=== PATIENT | male | born 2000 | race Caucasian/White ===

== ENCOUNTER 2023-11-06 11:36 | Emergency (ER) | payer OTHER ==
[~2023-11-06] VITALS: Ht 172.7 cm; Wt 88.5 kg
[2023-11-06 11:43] VITALS: BP 112/55; PULSE 70; RESP 22; TEMP 97.8; O2SAT 99
== END 2023-11-06 12:06 | disposition home or self-care (01) ==
LOC: MED 11:36
DX: S43.401A Unspecified sprain of right shoulder joint, initial encounter (principal); X58.XXXA Exposure to other specified factors, initial encounter; Y93.89 Activity, other specified; Y92.89 Other specified places as the place of occurrence of the external cause; Y99.8 Other external cause status
CPT/HCPCS: 99281